=== PATIENT | female | born 1975 | race Caucasian/White ===

== ENCOUNTER 2017-01-16 01:22 | Emergency (ER) | payer MEDICAID ==
[~2017-01-16] VITALS: Ht 152.4 cm; Wt 68.5 kg
[2017-01-16 01:26] VITALS: Ht 152.4 cm; Wt 68.5 kg
[2017-01-16] MEDS ORDERED: AMOX1TAB10 PO (05:04)
[2017-01-16] MEDS ORDERED: IBUP400T22 PO (05:04)
--- NOTE | 2017-01-16 05:04 | ERD ---
ER Documentation Chief Complaint Date/Time DATE: 01/16/17 TIME: 04:59 Chief Complaint left facial pain x 2 days HPI This pleasant 41-year-old female reports 10 day history of sinus congestion, with facial pain starting 2 days ago. Patient reports pain is on the left cheekbone, behind her left eye. Patient reports sore throat, denies history of seasonal allergies patient denies any change in hearing, or tooth pain. ROS All systems reviewed and are negative except as per history of present illness. Allergies Allergies: Coded Allergies: No Known Allergy (Unverified , 01/16/17) Physical Exam Vitals Vital Signs Date Time Temp Pulse Resp B/P Pulse Ox O2 Delivery O2 Flow Rate FiO2 01/16/17 01:26 98.7 110 20 105/67 98 Vitals stable, triage notes reviewed Physical Exam Const: No acute distress Head: Atraumatic Eyes: Normal Conjunctiva ENT: Bilateral tympanic membranes translucent, positive bony landmarks visualized, nasal mucosa edematous on the left turbinates touching, left maxillary tenderness, no temporomandibular joint crepitus, pharynx is pink, slightly injected, uvula rises and falls with pronation Neck: Full range of motion..~ No meningismus. No cervical chain nodes Resp: Chest rise and fall symmetrically clear to auscultation bilaterally Cardio: Abd: Skin: Back: Ext: Neur: Awake and alert Psych: Normal Mood and Affect Procedures/MDM This pleasant 41-year-old female presents to the emergency department today with left-sided facial pain. Dental abscess, sinusitis, temporomandibular joint disease all suspected. Physical exam consistent with a maxillary sinus infection patient will be treated with Augmentin, given Motrin for pain, I feel patient is appropriate for management by primary care physician in outpatient setting, return to emergency department for worsening of symptoms. Increase fluids, increase rest, maladies MDM Departure Diagnosis: Primary Impression: Sinusitis, acute maxillary Recurrence: not specified as recurrent Qualified Code: J01.00 - Acute maxillary sinusitis, recurrence not specified Patient Instructions: Acute Sinusitis [facility] Additional Instructions: Thank you for for coming to [facility] for your care today. Please ask your nurse or provider if you have questions about your care today and do not leave until all your questions have been answered. Please use any medications given as directed and follow-up with your doctor (or the doctor you were referred to) in the next 2-3 days. If you do not have a primary care doctor you may follow up at the [facility] (listed below). You may also use motrin and tylenol as needed for fever and/or pain unless instructed otherwise by your provider or nurse. Indications for more urgent follow-up have been discussed, but you may return to the Emergency Department at ANY time for any worrisome or worsening symptoms. If you have abdominal pain, please know that no test or exam you received is perfect and you should follow up within 8 hours for continued pain. If you had any imaging studies today, such as an X-Ray or CT Scan, these studies will be reviewed later by a radiologist. You will be called if there are important findings that were not identified today, so make sure the contact information you provided at registration is correct. If you received any narcotic pain control medicine today, such as Vicodin, Morphine or Dilaudid, your coordination and judgment may be affected for a number of hours. Please do not drive or operate heavy machinery, and you may want someone to assist you at home. If you were given a prescription for narcotic medication, be aware that it is very addictive- use sparingly and only if necessary. FREDERICK GARCIA Jan 16, 2017 05:04
[2017-01-16 05:34] VITALS: BP 110/73; PULSE 78; RESP 20; TEMP 98
== END 2017-01-16 05:34 | disposition home or self-care (01) ==
LOC: FTE 01:22
DX: J01.00 Acute maxillary sinusitis, unspecified (principal); I10 Essential (primary) hypertension; E11.9 Type 2 diabetes mellitus without complications
CPT/HCPCS: 99283

== ENCOUNTER 2018-05-05 14:49 | Emergency (ER) | END 2018-05-05 18:50 | disposition home or self-care (01) ==